=== PATIENT | female | born 1935 | race Caucasian/White ===

== ENCOUNTER 2021-07-06 02:36 | Inpatient (IN) | payer MEDICARE ==
[2021-07-06] VITALS (45 sets, daily range): BP systolic 70–167; BP diastolic 44–99
[~2021-07-06] VITALS: Ht 162.6 cm; Wt 62.6 kg
[2021-07-06] MEDS ORDERED: ONDANSETRON HCL INJ 2MG/ML 2ML 2 MG/ML VIAL IV STA (02:38)
[2021-07-06] MEDS ORDERED: OCTREOTIDE ACETATE 500 MCG in SODIUM CHLORIDE 0.9% 250ML 250 ML IV STA (02:38)
[2021-07-06] MEDS ORDERED: SODIUM CHLORIDE 0.9% 1000ML 1,000 ML ONE (02:53)
[2021-07-06] MEDS ORDERED: ACETAMINOPHEN 1000 MG/100 ML IV STA (03:09)
[2021-07-06] MEDS: SODIUM CHLORIDE 0.9% 500ML 500 ML IV STA ×2 (03:10→03:30)
[2021-07-06] MEDS ORDERED: SODIUM CHLORIDE 0.9% 1000ML 1,000 ML IV STA ×2 (03:13)
[2021-07-06] MEDS ORDERED: ONDANSETRON HCL INJ 2MG/ML 2ML 2 MG/ML VIAL IV PRN (03:15)
[2021-07-06] MEDS ORDERED: PIPERACILLIN/TAZOBACTAM 3.375 GM VIAL ONE (03:23)
[2021-07-06] MEDS ORDERED: ACETAMINOPHEN 1000 MG/100 ML 100 ML IV ONE (03:25)
[2021-07-06 03:31] LABS: BASOPHILS # (AUTO) 0.1 (0.0-0.1); BASOPHILS % 0.4 % (0.0-1.0); HEMATOCRIT 23.4 % (34.2-44.1); HEMOGLOBIN 8.1 g/dL (12.0-16.0); LYMPHOCYTES # (AUTO) 1.8 (1.0-3.2); LYMPHOCYTES % 13.7 % (18.0-39.1); MEAN CORPUSCULAR HEMOGLOBIN 26.4 pg (28-32); MEAN CORPUSCULAR HGB CONC 34.6 g/dL (31-35); MEAN CORPUSCULAR VOLUME 76.2 fL (81-99); MONOCYTES # (AUTO) 1.1 (0.2-0.8); MONOCYTES % 7.8 % (4.4-11.3); NEUTROPHILS # (AUTO) 10.2 (2.1-6.9); NEUTROPHILS % 75.9 % (38.7-80.0); PLATELET COUNT 405 x10e3/uL (140-360); RED BLOOD COUNT 3.07 x10e6/uL (3.6-5.1); RED CELL DISTRIBUTION WIDTH 21.2 % (11.7-14.4)
[2021-07-06 03:37] LABS: INR 1.05; PROTHROMBIN TIME 14.7 seconds (11.9-14.5)
[2021-07-06 03:47] LABS: ALBUMIN 2.2 g/dL (3.5-5.0); ALBUMIN/GLOBULIN RATIO 0.5 (0.8-2.0); ALKALINE PHOSPHATASE 40 IU/L (40-150); ANION GAP 18.6 mmol/L (8-16); BLOOD UREA NITROGEN 28 mg/dL (7-26); BUN/CREATININE RATIO 27 (6-25); CALCIUM 8.7 mg/dL (8.4-10.2); CARBON DIOXIDE 25 mmol/L (22-29); CHLORIDE 101 mmol/L (98-107); CREATINE KINASE 27 IU/L (29-168); CREATININE, SERUM 1.05 mg/dL (0.57-1.11); EST GLOMERULAR FILTRATION RATE 50 ML/MIN (60-); GLUCOSE 189 mg/dL (74-118); POTASSIUM 4.6 mmol/L (3.5-5.1); SODIUM 140 mmol/L (136-145)
[2021-07-06 03:49] LABS: ALANINE AMINOTRANSFERASE < 6 IU/L (0-55)
[2021-07-06 04:20] LABS: CLARITY,URINE TURBID (CLEAR); COLOR,URINE AMBER (YELLOW); KETONES,URINE TRACE (NEGATIVE); LEUKOCYTE ESTERASE ,URINE TRACE (NEGATIVE); NITRITE,URINE NEGATIVE (NEGATIVE); PROTEIN,URINE DIPSTICK 1+ (NEGATIVE); URINE UROBILINOGEN 0.2 mg/dL (0.2 - 1)
[2021-07-06 04:21] LABS: AMORPHOUS SEDIMENT,URINE MANY (FEW); BACTERIA,URINE MANY /HPF; EPITHELIAL CELLS,URINE MODERATE /LPF; RBC,URINE >50 /HPF (0-5); WBC,URINE (MAN) >50 /HPF (0-5)
[2021-07-06] MEDS ORDERED: DEXTROSE 5%/0.45% SOD CHL 1,000 ML IV SCH (06:15)
[2021-07-06] MEDS ORDERED: BASAGLAR K100 UNIT/1 SQ (07:07)
[2021-07-06] MEDS ORDERED: MIRTAZAPINE15 MG PO (07:07)
[2021-07-06] MEDS ORDERED: LEVOTHYROXINE50 MCG PO (07:07)
[2021-07-06] MEDS ORDERED: MEGESTROL400 MG/10 PO (07:07)
[2021-07-06] MEDS ORDERED: FAMOTIDINE20 MG PO (07:07)
[2021-07-06] MEDS ORDERED: ACETAMINOPHEN650 MG RC (07:07)
[2021-07-06] MEDS ORDERED: HUMALOG100 UNIT/3 (07:07)
[2021-07-06] MEDS ORDERED: CLONIDINE HCL0.1 MG PO (07:07)
[2021-07-06] MEDS ORDERED: OLANZAPINE2.5 MG PO (07:07)
[2021-07-06] MEDS ORDERED: TRAZODONE HCL50 MG PO (07:07)
[2021-07-06] MEDS ORDERED: ARIMIDEX1 MG PO (07:07)
[2021-07-06] MEDS ORDERED: METOCLOPRAM5 MG/5 ML PO (07:07)
[2021-07-06] MEDS ORDERED: DOCUSATE SODIU100 MG PO (07:07)
[2021-07-06] MEDS ORDERED: METFORMIN HCL500 MG PO (07:07)
[2021-07-06] MEDS ORDERED: ULTRAM50 MG PO (07:07)
[2021-07-06] MEDS ORDERED: ATORVASTATIN CA40 MG PO (07:07)
[2021-07-06] MEDS ORDERED: ASPIRIN81 MG PO (07:07)
[2021-07-06] MEDS ORDERED: VALPROIC A250 MG/5 M PO (07:07)
[2021-07-06] MEDS ORDERED: DOCUSATE SODIUM 100 MG CAP PO PRN (09:30)
[2021-07-06] MEDS ORDERED: TRAMADOL HCL 50 MG TAB PO PRN (09:30)
[2021-07-06 09:38] LABS: BASOPHILS % 0.2 % (0.0-1.0); LYMPHOCYTES # (AUTO) 1.4 (1.0-3.2); MEAN CORPUSCULAR HEMOGLOBIN 26.6 pg (28-32); MEAN CORPUSCULAR HGB CONC 35.4 g/dL (31-35); NEUTROPHILS # (AUTO) 9.7 (2.1-6.9); NEUTROPHILS % 78.8 % (38.7-80.0); PLATELET COUNT 311 x10e3/uL (140-360); RED BLOOD COUNT 2.52 x10e6/uL (3.6-5.1)
[2021-07-06 09:39] LABS: HEMATOCRIT 18.9 % (34.2-44.1); HEMOGLOBIN 6.7 g/dL (12.0-16.0)
[2021-07-06 10:10] LABS: CREATINE KINASE MB 0.9 ng/mL (0-5.0)
[2021-07-06 10:28] LABS: ALBUMIN 1.9 g/dL (3.5-5.0); ALBUMIN/GLOBULIN RATIO 0.5 (0.8-2.0); ALKALINE PHOSPHATASE 36 IU/L (40-150); ANION GAP 13.4 mmol/L (8-16); BLOOD UREA NITROGEN 24 mg/dL (7-26); BUN/CREATININE RATIO 29 (6-25); CALCIUM 7.6 mg/dL (8.4-10.2); CARBON DIOXIDE 24 mmol/L (22-29); CHLORIDE 105 mmol/L (98-107); CREATININE, SERUM 0.83 mg/dL (0.57-1.11); EST GLOMERULAR FILTRATION RATE 65 ML/MIN (60-); GLUCOSE 177 mg/dL (74-118); POTASSIUM 4.4 mmol/L (3.5-5.1); SODIUM 138 mmol/L (136-145)
[2021-07-06 10:31] LABS: ALANINE AMINOTRANSFERASE < 6 IU/L (0-55)
[2021-07-06] MEDS ORDERED: SODIUM CHLORIDE 0.9% 250ML 250 ML IV ONE (10:45)
[2021-07-06] MEDS: OCTREOTIDE ACETATE 500 MCG in SODIUM CHLORIDE 0.9% 250ML 250 ML IV SCH ×2 (13:33→22:46)
[2021-07-06] MEDS ORDERED: METOCLOPRAMIDE HCL 10 MG/2ML VIAL IV STA (14:35)
[2021-07-06 14:42] LABS: CLARITY,URINE CLEAR (CLEAR); COLOR,URINE YELLOW (YELLOW); KETONES,URINE NEGATIVE (NEGATIVE); LEUKOCYTE ESTERASE ,URINE TRACE (NEGATIVE); NITRITE,URINE NEGATIVE (NEGATIVE); PROTEIN,URINE DIPSTICK NEGATIVE (NEGATIVE)
[2021-07-06] MEDS ORDERED: DIATRIZOATE MEGL/DIATRIZOA SOD 30 ML BTL PO ONE (14:50)
[2021-07-06 14:56] LABS: BACTERIA,URINE FEW /HPF; EPITHELIAL CELLS,URINE RARE /LPF; RBC,URINE 0-5 /HPF (0-5)
[2021-07-06 17:36] LABS: HEMATOCRIT 22.9 % (34.2-44.1)
[2021-07-06] MEDS: METOCLOPRAMIDE HCL 10 MG/2ML VIAL IV SCH ×2 (18:11→22:46)
[2021-07-06 21:35] LABS: CREATINE KINASE MB 0.7 ng/mL (0-5.0)
[2021-07-06] MEDS ORDERED: PEG (High)/E-LYTE SOLN 4,000 ML BTL PO ONE (22:30)
[2021-07-06] MEDS ORDERED: SODIUM CHLORIDE 0.9% 250ML 0 ML ONE (22:54)
[2021-07-07] VITALS (51 sets, daily range): BP systolic 125–186; BP diastolic 60–140
[2021-07-07] MEDS ORDERED: CITRATE OF MAGNESIA 300ML BOTTLE PO ONE ×2 (01:45→03:00)
[2021-07-07 02:05] LABS: % IRON SATURATION 10 % (15-50); IRON 20 ug/dL (50-170); TOTAL IRON BINDING CAPACITY 200 ug/dL (261-478); TRANSFERRIN 143 mg/dL (180-382)
[2021-07-07 05:14] LABS: BASOPHILS # (AUTO) 0.1 (0.0-0.1); BASOPHILS % 0.5 % (0.0-1.0); EOSINOPHILS # (AUTO) 0.2 (0.0-0.4); EOSINOPHILS % 1.7 % (0.0-6.0); HEMOGLOBIN 7.8 g/dL (12.0-16.0); LYMPHOCYTES # (AUTO) 1.6 (1.0-3.2); LYMPHOCYTES % 13.6 % (18.0-39.1); MEAN CORPUSCULAR HEMOGLOBIN 27.4 pg (28-32); MEAN CORPUSCULAR HGB CONC 35.1 g/dL (31-35); MEAN CORPUSCULAR VOLUME 77.9 fL (81-99); MONOCYTES # (AUTO) 1.1 (0.2-0.8); MONOCYTES % 8.9 % (4.4-11.3); NEUTROPHILS # (AUTO) 8.8 (2.1-6.9); NEUTROPHILS % 73.1 % (38.7-80.0); PLATELET COUNT 311 x10e3/uL (140-360); RED BLOOD COUNT 2.85 x10e6/uL (3.6-5.1); RED CELL DISTRIBUTION WIDTH 19.9 % (11.7-14.4)
[2021-07-07] MEDS: LEVOTHYROXINE SODIUM 50 MCG TAB PO SCH (05:14)
[2021-07-07] MEDS: METOCLOPRAMIDE HCL 10 MG/2ML VIAL IV SCH ×3 (05:14→17:06)
[2021-07-07 05:35] LABS: ALBUMIN 1.9 g/dL (3.5-5.0); ALBUMIN/GLOBULIN RATIO 0.5 (0.8-2.0); ALKALINE PHOSPHATASE 38 IU/L (40-150); ANION GAP 13.6 mmol/L (8-16); BLOOD UREA NITROGEN 17 mg/dL (7-26); BUN/CREATININE RATIO 20 (6-25); CALCIUM 7.6 mg/dL (8.4-10.2); CARBON DIOXIDE 22 mmol/L (22-29); CHLORIDE 109 mmol/L (98-107); CREATININE, SERUM 0.83 mg/dL (0.57-1.11); EST GLOMERULAR FILTRATION RATE 65 ML/MIN (60-); GLUCOSE 90 mg/dL (74-118); POTASSIUM 3.6 mmol/L (3.5-5.1); SODIUM 141 mmol/L (136-145)
[2021-07-07 05:48] LABS: ALANINE AMINOTRANSFERASE < 6 IU/L (0-55)
[2021-07-07 05:53] LABS: HEMATOCRIT 22.2 % (34.2-44.1)
[2021-07-07] MEDS: ANASTROZOLE 1 MG TAB PO SCH (09:00)
[2021-07-07] MEDS: MEGACE 400MG/ 10ML CUP PO SCH (09:00)
[2021-07-07] MEDS: OCTREOTIDE ACETATE 500 MCG in SODIUM CHLORIDE 0.9% 250ML 250 ML IV SCH ×2 (11:38→21:09)
[2021-07-08] VITALS (30 sets, daily range): BP systolic 127–180; BP diastolic 61–100
[2021-07-08] MEDS: METOCLOPRAMIDE HCL 10 MG/2ML VIAL IV SCH ×4 (00:51→17:04)
[2021-07-08] MEDS ORDERED: CYANOCOBALAMIN INJ 1,000 MCG/ML VIAL IM ONE (02:30)
[2021-07-08 05:03] LABS: BASOPHILS % 0.4 % (0.0-1.0); EOSINOPHILS # (AUTO) 0.2 (0.0-0.4); EOSINOPHILS % 1.7 % (0.0-6.0); HEMATOCRIT 22.5 % (34.2-44.1); HEMOGLOBIN 7.8 g/dL (12.0-16.0); LYMPHOCYTES # (AUTO) 1.6 (1.0-3.2); LYMPHOCYTES % 15.9 % (18.0-39.1); MEAN CORPUSCULAR HEMOGLOBIN 27.2 pg (28-32); MEAN CORPUSCULAR HGB CONC 34.7 g/dL (31-35); MEAN CORPUSCULAR VOLUME 78.4 fL (81-99); MONOCYTES # (AUTO) 0.9 (0.2-0.8); MONOCYTES % 9.1 % (4.4-11.3); NEUTROPHILS # (AUTO) 7.2 (2.1-6.9); NEUTROPHILS % 70.5 % (38.7-80.0); PLATELET COUNT 380 x10e3/uL (140-360); RED BLOOD COUNT 2.87 x10e6/uL (3.6-5.1); RED CELL DISTRIBUTION WIDTH 19.7 % (11.7-14.4)
[2021-07-08 05:25] LABS: ALBUMIN/GLOBULIN RATIO 0.5 (0.8-2.0); ANION GAP 15.4 mmol/L (8-16); CALCIUM 7.4 mg/dL (8.4-10.2); CREATININE, SERUM 0.72 mg/dL (0.57-1.11); POTASSIUM 3.4 mmol/L (3.5-5.1)
[2021-07-08] MEDS: LEVOTHYROXINE SODIUM 50 MCG TAB PO SCH (05:50)
[2021-07-08] MEDS: OCTREOTIDE ACETATE 500 MCG in SODIUM CHLORIDE 0.9% 250ML 250 ML IV SCH ×2 (07:43→19:28)
[2021-07-08] MEDS: CYANOCOBALAMIN INJ 1,000 MCG/ML VIAL IM SCH (08:46)
[2021-07-08] MEDS: IRON SUCROSE 100 MG in SODIUM CHLORIDE 0.9% 100 ML 100 ML IV SCH (08:46)
[2021-07-08] MEDS: MEGACE 400MG/ 10ML CUP PO SCH (08:47)
[2021-07-08] MEDS: FOLIC ACID 1 MG TAB PO SCH (08:47)
[2021-07-08] MEDS: ANASTROZOLE 1 MG TAB PO SCH (08:47)
[2021-07-08] MEDS ORDERED: CLONIDINE HCL 0.1 MG/24 HR 1 EA PATCH TOP SCH (15:45)
[2021-07-08] MEDS ORDERED: METOPROLOL TARTRATE INJ 1 MG/ML VIAL IV ONE (15:55)
[2021-07-08] MEDS ORDERED: LIDOCAINE HCL 2% LOCAL INJ 5 ML SDV VIAL INJ ONE (17:12)
[2021-07-08] MEDS ORDERED: PROPOFOL IV EMULSION 10 MG/ML 20 ML VIAL ONE (17:12)
[2021-07-08] MEDS ORDERED: HYOSCYAMINE SULFATE 0.5 MG/ML INJ ONE (17:12)
[2021-07-09] VITALS (7 sets, daily range): BP systolic 103–165; BP diastolic 58–84
[2021-07-09] MEDS: METOCLOPRAMIDE HCL 10 MG/2ML VIAL IV SCH ×5 (00:56→23:10)
[2021-07-09] MEDS: OCTREOTIDE ACETATE 500 MCG in SODIUM CHLORIDE 0.9% 250ML 250 ML IV SCH ×3 (00:57→21:53)
[2021-07-09] MEDS ORDERED: SODIUM CHLORIDE 0.9% 250ML 0 ML ONE (03:37)
[2021-07-09] MEDS: LEVOTHYROXINE SODIUM 50 MCG TAB PO SCH (06:29)
[2021-07-09 08:03] LABS: BASOPHILS % 0.2 % (0.0-1.0); HEMATOCRIT 23.6 % (34.2-44.1); HEMOGLOBIN 8.2 g/dL (12.0-16.0); LYMPHOCYTES # (AUTO) 1.1 (1.0-3.2); LYMPHOCYTES % 8.6 % (18.0-39.1); MEAN CORPUSCULAR HEMOGLOBIN 27.2 pg (28-32); MEAN CORPUSCULAR HGB CONC 34.7 g/dL (31-35); MEAN CORPUSCULAR VOLUME 78.4 fL (81-99); MONOCYTES # (AUTO) 1.1 (0.2-0.8); MONOCYTES % 8.2 % (4.4-11.3); NEUTROPHILS % 77.8 % (38.7-80.0); PLATELET COUNT 455 x10e3/uL (140-360); RED BLOOD COUNT 3.01 x10e6/uL (3.6-5.1); RED CELL DISTRIBUTION WIDTH 19.8 % (11.7-14.4)
[2021-07-09 08:27] LABS: ALBUMIN 2.3 g/dL (3.5-5.0); ALBUMIN/GLOBULIN RATIO 0.5 (0.8-2.0); CALCIUM 7.7 mg/dL (8.4-10.2); CREATININE, SERUM 1.15 mg/dL (0.57-1.11)
[2021-07-09] MEDS: FOLIC ACID 1 MG TAB PO SCH (10:00)
[2021-07-09] MEDS ORDERED: SODIUM CHLORIDE 0.9% 250ML 250 ML ONE (10:17)
[2021-07-09] MEDS ORDERED: KCL 20 MEQ PACKET/ ORAL SOLN PEG ONE ×2 (11:30→13:00)
[2021-07-09] MEDS: MEGACE 400MG/ 10ML CUP PO SCH (11:36)
[2021-07-09] MEDS: ANASTROZOLE 1 MG TAB PO SCH (11:36)
[2021-07-09] MEDS: CYANOCOBALAMIN INJ 1,000 MCG/ML VIAL IM SCH (11:37)
[2021-07-09 16:54] LABS: ALBUMIN 2.3 g/dL (3.5-5.0); ALBUMIN/GLOBULIN RATIO 0.5 (0.8-2.0); ANION GAP 22.6 mmol/L (8-16); CALCIUM 7.7 mg/dL (8.4-10.2); CREATININE, SERUM 1.29 mg/dL (0.57-1.11); POTASSIUM 3.6 mmol/L (3.5-5.1)
[2021-07-09] MEDS: IRON SUCROSE 100 MG in SODIUM CHLORIDE 0.9% 100 ML 100 ML IV SCH (17:37)
[2021-07-09] MEDS: HEPARIN SOD (PORCINE) 5,000 UNIT/ML VIAL SC SCH (21:41)
[2021-07-10] VITALS (7 sets, daily range): BP systolic 149–177; BP diastolic 64–94
[2021-07-10] MEDS: METOCLOPRAMIDE HCL 10 MG/2ML VIAL IV SCH ×3 (05:28→16:45)
[2021-07-10] MEDS: LEVOTHYROXINE SODIUM 50 MCG TAB PO SCH (05:28)
[2021-07-10] MEDS: OCTREOTIDE ACETATE 500 MCG in SODIUM CHLORIDE 0.9% 250ML 250 ML IV SCH ×2 (06:45→18:17)
[2021-07-10 08:48] LABS: BASOPHILS % 0.4 % (0.0-1.0); EOSINOPHILS # (AUTO) 0.1 (0.0-0.4); EOSINOPHILS % 0.5 % (0.0-6.0); HEMATOCRIT 23.3 % (34.2-44.1); HEMOGLOBIN 8.2 g/dL (12.0-16.0); LYMPHOCYTES # (AUTO) 0.9 (1.0-3.2); LYMPHOCYTES % 8.9 % (18.0-39.1); MEAN CORPUSCULAR HEMOGLOBIN 27.2 pg (28-32); MEAN CORPUSCULAR HGB CONC 35.2 g/dL (31-35); MEAN CORPUSCULAR VOLUME 77.4 fL (81-99); MONOCYTES # (AUTO) 1.5 (0.2-0.8); MONOCYTES % 14.3 % (4.4-11.3); NEUTROPHILS # (AUTO) 7.5 (2.1-6.9); NEUTROPHILS % 73.2 % (38.7-80.0); PLATELET COUNT 456 x10e3/uL (140-360); RED BLOOD COUNT 3.01 x10e6/uL (3.6-5.1); RED CELL DISTRIBUTION WIDTH 20.1 % (11.7-14.4)
[2021-07-10 09:00] LABS: ALBUMIN 2.2 g/dL (3.5-5.0); ALBUMIN/GLOBULIN RATIO 0.6 (0.8-2.0); ANION GAP 14.5 mmol/L (8-16); CALCIUM 7.7 mg/dL (8.4-10.2); CREATININE, SERUM 1.08 mg/dL (0.57-1.11); POTASSIUM 3.5 mmol/L (3.5-5.1)
[2021-07-10] MEDS: FOLIC ACID 1 MG TAB PO SCH (09:00)
[2021-07-10] MEDS: IRON SUCROSE 100 MG in SODIUM CHLORIDE 0.9% 100 ML 100 ML IV SCH (09:00)
[2021-07-10] MEDS: CYANOCOBALAMIN INJ 1,000 MCG/ML VIAL IM SCH (09:00)
[2021-07-10] MEDS: MEGACE 400MG/ 10ML CUP PO SCH (09:00)
[2021-07-10] MEDS: ANASTROZOLE 1 MG TAB PO SCH (09:00)
[2021-07-10] MEDS: HEPARIN SOD (PORCINE) 5,000 UNIT/ML VIAL SC SCH ×2 (09:00→21:00)
[2021-07-10] MEDS ORDERED: METOPROLOL SUCCINATE 25 MG TAB XL PO SCH (10:15)
[2021-07-10] MEDS: METOPROLOL TARTRATE 25 MG TAB PO SCH ×2 (11:23→21:39)
[2021-07-11] MEDS: METOCLOPRAMIDE HCL 10 MG/2ML VIAL IV SCH ×3 (01:13→12:22)
[2021-07-11 04:57] VITALS: BP 157/78
[2021-07-11] MEDS: LEVOTHYROXINE SODIUM 50 MCG TAB PO SCH (05:52)
[2021-07-11] MEDS: OCTREOTIDE ACETATE 500 MCG in SODIUM CHLORIDE 0.9% 250ML 250 ML IV SCH ×2 (06:05→12:23)
[2021-07-11 07:45] VITALS: BP 149/88
[2021-07-11 08:00] VITALS: BP 149/88
[2021-07-11] MEDS: HEPARIN SOD (PORCINE) 5,000 UNIT/ML VIAL SC SCH (09:00)
[2021-07-11] MEDS: CYANOCOBALAMIN INJ 1,000 MCG/ML VIAL IM SCH (09:00)
[2021-07-11] MEDS ORDERED: METOPROLOL SUCCINATE 25 MG TAB XL PO SCH (09:00)
[2021-07-11] MEDS: METOPROLOL TARTRATE 25 MG TAB PO SCH (09:15)
[2021-07-11] MEDS: FOLIC ACID 1 MG TAB PO SCH (09:15)
[2021-07-11] MEDS: ANASTROZOLE 1 MG TAB PO SCH (09:15)
[2021-07-11] MEDS: MEGACE 400MG/ 10ML CUP PO SCH (09:15)
[2021-07-11] MEDS: IRON SUCROSE 100 MG in SODIUM CHLORIDE 0.9% 100 ML 100 ML IV SCH (09:15)
[2021-07-11] MEDS ORDERED: METOPROLOL TART25 MG PO (11:28)
[2021-07-11 11:44] VITALS: BP 108/45
[2021-07-11] MEDS ORDERED: ONDANSETRON HCL 4 MG ORAL DISINTEGRATING TAB PO PRN (13:45)
== END 2021-07-11 13:50 | DRG 871 ==
LOC: ER 02:40 → ERHOLD 04:27 → ICU 06:26 → MED/SURG2 07-08 23:16
PROC: 0DJ08ZZ Inspection of Upper Intestinal Tract, Via Natural or Artificial Opening Endoscopic (ICD-10-PCS; principal; 2021-07-08 13:21)
PROC: 0DJD8ZZ Inspection of Lower Intestinal Tract, Via Natural or Artificial Opening Endoscopic (ICD-10-PCS; 2021-07-08 13:21)
DX: A41.9 Sepsis, unspecified organism (principal); K57.31 Diverticulosis of large intestine without perforation or abscess with bleeding; G93.41 Metabolic encephalopathy; N17.0 Acute kidney failure with tubular necrosis; D62 Acute posthemorrhagic anemia; K62.6 Ulcer of anus and rectum; I69.351 Hemiplegia and hemiparesis following cerebral infarction affecting right dominant side; E87.2 Acidosis; R65.20 Severe sepsis without septic shock; K20.90 Esophagitis, unspecified without bleeding; K44.9 Diaphragmatic hernia without obstruction or gangrene; F03.90 Unspecified dementia, unspecified severity, without behavioral disturbance, psychotic disturbance, mood disturbance, and anxiety; I10 Essential (primary) hypertension; F32.A Depression, unspecified; E11.9 Type 2 diabetes mellitus without complications; Z85.3 Personal history of malignant neoplasm of breast; E78.5 Hyperlipidemia, unspecified; K21.9 Gastro-esophageal reflux disease without esophagitis; E03.9 Hypothyroidism, unspecified; G89.29 Other chronic pain; E87.6 Hypokalemia; Z93.1 Gastrostomy status; R62.7 Adult failure to thrive; Z68.23 Body mass index [BMI] 23.0-23.9, adult
CPT/HCPCS: 36415; 43239; 45378; 51700; 71045; 74176; 80053; 81001; 82270; 82550; 82553; 82607; 82746; 83540; 83605; 83735; 84466; 84484; 85014; 85018; 85025; 85045; 85610; 86850; 86900; 86920; 87040; 93005; 93306; 99285; J1644; J1756; J1980; J2001; J2353; J2405; J2543; J2765; J3420; J7030; J7040; J7050; P9016; U0002